=== PATIENT | female | born 1990 | race African-American/Black ===

== ENCOUNTER 2020-06-25 22:02 | Emergency (ER) | payer OTHER ==
[~2020-06-25] VITALS: Ht 177.8 cm; Wt 108.9 kg
[2020-06-25 22:10] VITALS: BP 130/60
== END 2020-06-25 23:20 | disposition left against medical advice (07) ==
LOC: EDBD 22:02 → ER 22:06
DX: J45.909 Unspecified asthma, uncomplicated (principal); Z76.0 Encounter for issue of repeat prescription; Z53.21 Procedure and treatment not carried out due to patient leaving prior to being seen by health care provider